=== PATIENT | male | born 1945 | race Caucasian/White ===

== ENCOUNTER 2020-10-14 21:11 | Emergency (ER) | payer MEDICARE, OTHER, SELFPAY ==
[2020-10-14 21:17] VITALS: BP 141/81; PULSE 71; RESP 18; TEMP 36.2; O2SAT 99
[2020-10-14 21:38] LABS: Add Manual Diff / Slide Review NO; Basophils Absolute Auto 100 /uL (0-100); Basophils Percent Auto 0.8 % (0-2); Eosinophils Absolute Auto 300 /uL (0-450); Eosinophils Percent Auto 2.2 % (2-4); Hematocrit 39.7 % (41-53); Hemoglobin 13.4 g/dL (13.5-17.5); Lymphocytes Absolute Auto 1700 /uL (1100-4500); Lymphocytes Percent Auto 10.4 % (25-40); Mean Corpuscular HGB Conc 33.8 % (30-36); Mean Corpuscular Hemoglobin 31.9 PG (26-34); Mean Corpuscular Volume 94.6 fL (80-100); Monocytes Absolute Auto 1400 /uL (0-900); Monocytes Percent Auto 8.5 % (3-14); Neutrophils Absolute Auto 12500 /uL (1500-7000); Neutrophils Percent Auto 78.1 % (50-75); Platelet Count 361 X10^3/uL (150-400); Red Cell Distribution Width 13.3 % (11.6-14.8)
[2020-10-14 21:47] LABS: Alanine Aminotransferase 30 IU/L (<50); Albumin 4.4 g/dL (3.5-5.0); Albumin Globulin Ratio 1.1 (1.0-2.8); Alkaline Phosphatase 50 U/L (38-126); Aspartate Aminotransferase 32 IU/L (17-59); Bilirubin Total 0.7 mg/dL (0.2-1.3); Blood Urea Nitrogen 72 mg/dL (9-20); Calcium 9.5 mg/dL (8.4-10.2); Carbon Dioxide 19 mmol/L (22-32); Chloride 107 mmol/L (98-107); Estimated Glomerular Filt Rate 20.6 mL/min (>60); Globulin 3.9 g/dL (1.7-4.1); Glucose 145 mg/dL (80-110); Lipase 232 U/L (23-300); Sodium 137 mmol/L (137-145); Total Protein 8.3 g/dL (6.3-8.2)
[2020-10-14 21:48] LABS: HEMOLYSIS 97 (0-50); Potassium 5.8 mmol/L (3.4-5.1)
[2020-10-14] MEDS: LIDOCAINE 2% (GLYDO) 6 ML GEL TOP (22:03)
[2020-10-14 22:42] LABS: Bilirubin Urine UA NEGATIVE (NEGATIVE); Color Urine UA YELLOW; Glucose Urine UA NEGATIVE (Negative); Ketones Urine UA NEGATIVE (NEGATIVE); Leukocyte Esterase Urine UA 2+ (NEGATIVE); Nitrite Urine UA NEGATIVE (Negative); Occult Blood Urine UA 2+ (Negative); Protein Urine UA 2+ (Negative); Specific Gravity Urine UA 1.015 (1.000-1.035); Urobilinogen Urine UA 0.2 E.U./dL (0.2); pH Urine UA 5.5 (4.5-8.0)
[2020-10-14 22:47] LABS: Appearance Urine UA CLOUDY
--- NOTE | 2020-10-14 22:47 | ED.GENADULT ---
HPI - General Adult General Chief complaint: Abdominal Pain Stated complaint: unable to urinate s/p infection Time Seen by Provider: 10/14/20 21:56 Source: patient Mode of arrival: Ambulatory History of Present Illness HPI narrative: Patient is a 75-year-old male here for evaluation of what he states that inability to urinate. He states that all his symptoms started approximately 3 weeks ago when he went to his primary doctor was diagnosed with a urinary tract infection. He stated that he completed a course of a medicine that he stated was Macrobid. He states that his symptoms seemed to improve but did not completely resolve and over the past couple days has had increasing difficulty with urination until the past 24 hours when he has been unable to urinate completely. He states he is going to the bathroom very often and does not feel like he is emptying his bladder. No fevers. States that he does have an enlarged prostate. Related Data Home Medications Medication Instructions Recorded Confirmed aspirin 81 mg chewable tablet 81 mg PO QDAY #0 08/28/16 atenolol 50 mg tablet 50 mg PO QDAY #0 08/28/16 losartan 100 1 tab PO QDAY #0 08/28/16 mg-hydrochlorothiazide 25 mg tablet metformin 500 mg tablet 500 mg PO BIDCC #0 08/28/16 (Glucophage) Previous Rx's Medication Instructions Recorded sulfamethoxazole 800 1 tab PO BID 3 Days #6 tab 10/14/20 mg-trimethoprim 160 mg tablet (Bactrim DS) Allergies Allergy/AdvReac Type Severity Reaction Status Date / Time No Known Drug Allergies Allergy Verified 10/14/20 21:55 Review of Systems Constitutional Constitutional: Denies fever(s) Cardiovascular Cardiovascular: Reports system reviewed and no additional complaints, except as documented Respiratory Respiratory: Reports system reviewed and no additional complaints, except as documented Gastrointestinal Gastrointestinal: Reports abdominal pain Genitourinary Genitourinary: Reports as per HPI Integumentary/Breasts Skin/Breast: Reports system reviewed and no additional complaints, except as documented Hematologic/Lymphatic On Anticoagulants: No Exam Initial Vital Signs Initial Vital Signs: Vital Signs Temperature 97.1 F L 10/14/20 21:17 Pulse Rate 71 10/14/20 21:17 Respiratory Rate 18 10/14/20 21:17 Blood Pressure 141/81 H 10/14/20 21:17 Pulse Oximetry 99 10/14/20 21:17 HENLA Head: normal to inspection GI Inspection: normal to inspection Palpation: soft External: normal external exam Skin General: no rashes or lesions noted Extrem General: normal to inspection Psych Appearance: grossly normal and well kempt Course Orders Ordered: ED Orders 10/14/20 21:30 Complete Blood Count AUTO DIFF Stat Comprehensive Metabolic Panel Stat Lipase Stat 10/14/20 22:29 Urinalysis and Microscopic Stat Urine Culture Stat Discontinued Medications Lidocaine HCl (Lidocaine 2% (Glydo) 6 Ml Gel) 6 ml TOP NOW ONE Stop: 10/14/20 21:51 Last Admin: 10/14/20 22:03 Dose: 6 ml Documented by: ATAYLOR Trimethoprim/Sulfamethoxazole (Trimeth/Sulfa 160/800 (Ds) Tablet) 1 tab PO NOW ONE Stop: 10/14/20 23:24 Last Admin: 10/14/20 23:42 Dose: 1 tab Documented by: STEFANIE Vital Signs Vital signs: Vital Signs - 8 hr 10/15/20 00:00 Pulse Rate 71 Respiratory Rate 16 Blood Pressure 140/80 Pulse Oximetry 99 Medical Decision Making Lab Data Lab results reviewed: Yes I reviewed the patient's lab results. Result diagrams: 10/14/20 21:30 10/14/20 21:30 Labs: Lab Results 10/14/20 10/14/20 10/14/20 Range/Units 21:30 21:30 22:29 WBC 16.0 H (4.5-11.0) X10^3/uL RBC 4.20 L (4.5-5.9) X10^6/uL Hgb 13.4 L (13.5-17.5) g/dL Hct 39.7 L (41-53) % MCV 94.6 (80-100) fL MCH 31.9 (26-34) PG MCHC 33.8 (30-36) % RDW 13.3 (11.6-14.8) % Plt Count 361 (150-400) X10^3/uL Neut % (Auto) 78.1 H (50-75) % Lymph % (Auto) 10.4 L (25-40) % [place] % (Auto) 8.5 (3-14) % Eos % (Auto) 2.2 (2-4) % Baso % (Auto) 0.8 (0-2) % Neut # (Auto) 25013 H (5468-7850) /uL Lymph # (Auto) 1700 (2188-2662) /uL [place] # (Auto) 1400 H (0-900) /uL Eos # (Auto) 300 (0-450) /uL Baso # (Auto) 100 (0-100) /uL Sodium 137 (137-145) mmol/L Potassium 5.8 H (3.4-5.1) mmol/L Chloride 107 (98-107) mmol/L Carbon Dioxide 19 L (22-32) mmol/L BUN 72 H (9-20) mg/dL Creatinine 3.00 H (0.66-1.25) mg/dL Estimated GFR 20.6 L (>60) mL/min BUN/Creatinine Ratio 24.0 H (6-22) Glucose 145 H (80-110) mg/dL Calcium 9.5 (8.4-10.2) mg/dL Total Bilirubin 0.7 (0.2-1.3) mg/dL AST 32 (17-59) IU/L ALT 30 (<50) IU/L Alkaline Phosphatase 50 (38-126) U/L Total Protein 8.3 H (6.3-8.2) g/dL Albumin 4.4 (3.5-5.0) g/dL Globulin 3.9 (1.7-4.1) g/dL Albumin/Globulin Ratio 1.1 (1.0-2.8) Lipase 232 (23-300) U/L Urine Color Yellow Urine Appearance Cloudy Urine pH 5.5 (4.5-8.0) Ur Specific [place] 1.015 (1.000-1.035) Urine Protein 2+ H (Negative) Urine Glucose (UA) Negative (Negative) g/dL Urine Ketones Negative (NEGATIVE) Urine Occult Blood 2+ H (Negative) Urine Nitrate Negative (Negative) Urine Bilirubin Negative (NEGATIVE) Urine Urobilinogen 0.2 (0.2) E.U./dL Ur Leukocyte Esterase 2+ H (NEGATIVE) Urine RBC 1-5/hpf (0-5/HPF) Urine WBC >100/hpf H (0-5/HPF) Urine Bacteria Moderate (10-30) H (None) Ur Culture Indicated? Specimen cultured MDM Narrative Medical decision making narrative: Bruno catheter was placed with return of just under 2 L of urine. The last portion of this urine was purulence. Urinalysis today is concerning for urinary tract infection. Does have a leukocytosis which I suspect is related to this. He does have a creatinine of 3 and a BUN of 72 and I suspect that this is related to his outlet obstruction. I have a very high suspicion that this will improve with continued drainage. Will start patient on antibiotics. Urine culture was obtained and is pending at the time of discharge in the patient understands this. A prescription for antibiotics sent to the pharmacy of his choice. Feel that a trial of outpatient antibiotics is warranted in this case. He was given information to follow-up with urology as well but he was also told to contact his primary doctor for follow-up. Patient was given return precautions and care instructions. He expressed understanding and agreement. Discharge Plan Departure Patient Disposition: Home Clinical Impression: Urinary tract infection, Acute urinary retention Instructions: How to Care for Your Bruno Catheter -- Male, DI for Urinary Tract Infection (UTI), DI for Urinary Retention in Men Activity Restrictions/Additional Instructions: A prescription for antibiotics to treat the infection that was found today was sent to the [facility] pharmacy on the [facility]. Pick it up tomorrow and start taking it as directed. A urine culture was also pending at the time of your discharge. We will contact you if we need to change any antibiotics. You were given the contact information for the Urology Clinic here at the hospital. You can contact them tomorrow for follow-up as well however you may need a referral from your primary doctor. Keep your primary doctor's appointment that you already have scheduled on Monday. Return to the emergency department for any new or worsening symptoms Prescriptions: New sulfamethoxazole-trimethoprim [Bactrim DS] 800-160 mg tablet 1 tab PO BID 3 Days Qty: 6 RF: 0 No Action losartan-hydrochlorothiazide 100 MG/25 MG tablet 1 tab PO QDAY Qty: 0 RF: 0 atenolol 50 MG tablet 50 mg PO QDAY Qty: 0 RF: 0 metformin [Glucophage] 500 MG tablet 500 mg PO BIDCC Qty: 0 RF: 0 aspirin 81 MG tablet,chewable 81 mg PO QDAY Qty: 0 RF: 0 Referrals: Vu Oneal MD [Primary Care Provider] - Alexis Negrete MD [Physician] -
[2020-10-14 22:57] LABS: Bacteria Urine Moderate (10-30); RBC Urine 1-5/HPF (0-5/HPF); WBC Urine >100/HPF (0-5/HPF)
[2020-10-14 22:58] LABS: Culture Indicated Urine Specimen Cultured
[2020-10-14] MEDS: TRIMETH/SULFA 160/800 (DS) TABLET 1 TAB PO (23:42)
[2020-10-15] VITALS: BP 140/80; PULSE 71; RESP 16; O2SAT 99
== END 2020-10-15 00:34 | disposition home or self-care (01) ==
PROVIDERS: Emergency Provider Emergency Medicine; PCP Family Medicine
DX: N39.0 Urinary tract infection, site not specified (principal); R33.8 Other retention of urine; R10.9 Unspecified abdominal pain
CPT/HCPCS: 36415; 51798; 80053; 81001; 83690; 85025; 87077; 87086; 87186; 99283; 99284

== ENCOUNTER 2020-10-20 09:21 | Emergency (ER) | payer MEDICARE, OTHER, SELFPAY ==
[2020-10-20 09:25] VITALS: BP 121/76; PULSE 76; RESP 14; TEMP 36.4; O2SAT 99
[2020-10-20] MEDS: LIDOCAINE 2% (GLYDO) 6 ML GEL TOP (09:44)
--- NOTE | 2020-10-20 09:54 | ED_ITS ---
HPI - Male Genitourinary General Chief complaint: Urogenital-Male Stated complaint: Not able to urinate Time Seen by Provider: 10/20/20 09:30 Source: patient Mode of arrival: Ambulatory Limitations: no limitations History of Present Illness HPI Narrative: This is a 75-year-old male who returns for urinary retention. Patient was seen here recently, he was noted to have a UTI, had Bruno catheter placed. This was removed by his primary care physician Dr. Oneal yesterday. He was told to return to the emergency department if he had not urinated after 4 hours. Patient states he was unable to urinate but was not any discomfort so he waited till this morning. Patient states that he had some mild discomfort tod ay. He had 1500 cc immediately out from his catheter. Patient was on antibiotics he states he was contacted about the urine culture. Patient denies any fevers or chills. No abdominal, back or flank pain. No nausea or vomiting. He does have chronic urinary issues and states he has always had to sit down to urinate in order to start a stream. He denies any other urinary symptoms such as dysuria, frequency or incontinence. Patient has been constipated and states he has not had a significant bowel movement for 2 weeks but is regularly passing flatus. He does have a history of hypertension as well as diabetes and takes an aspirin 81 mg daily. He is not on any medications for retention and is not taking Flomax daily. He did try to follow-up with urology but was not able to secure an appointment. He denies any prior surgeries or intra-abdominal surgeries. Related Data Home Medications Medication Instructions Recorded Confirmed aspirin 81 mg chewable tablet 81 mg PO QDAY #0 08/28/16 10/20/20 atenolol 50 mg tablet 50 mg PO QDAY #0 08/28/16 10/20/20 losartan 100 1 tab PO QDAY #0 08/28/16 10/20/20 mg-hydrochlorothiazide 25 mg tablet metformin 500 mg tablet 500 mg PO BIDCC #0 08/28/16 10/20/20 (Glucophage) Previous Rx's Medication Instructions Recorded tamsulosin 0.4 mg capsule (Flomax) 0.4 mg PO DAILY #14 cap 10/20/20 Allergies Allergy/AdvReac Type Severity Reaction Status Date / Time No Known Drug Allergies Allergy Verified 10/20/20 09:37 Review of Systems Review of Systems ROS Unobtainable: All systems reviewed & are unremarkable except as noted in HPI and below Patient History Medical History (Updated 10/20/20 @ 11:54 by Ila Trammell DO) Diabetes Hypertension Social History Smoking Status: Never smoker Smoking Status: Never smoker alcohol intake frequency: 0-2 drinks per day Substance Use Type: does not use Exam Narrative Exam Narrative: GENERAL: Alert and oriented x three, male in mild distress. HEENT: Head normocephalic, atraumatic, EOMI, pupils reactive, face symmetric, moist mucous membranes NECK: Supple, full range of motion CARDIOVASCULAR: Regular rate and rhythm without murmurs, rubs or gallops. RESPIRATORY: Breath sounds equal bilaterally, no wheezes rales or rhonchi. ABDOMEN: Soft, nontender. Normoactive bowel sounds all 4 quadrants. No guarding or rebound, rigidity, no mass. : No CVA tenderness, normal male genital. Patient is draining 1500 cc immedi ately of clear yellow urine. EXTREMITIES: Normal range of motion, no clubbing or edema. Neurovascularly intact NEUROLOGICAL: Cranial nerves II through XII grossly intact. Moving all extremities SKIN: Warm, dry, no petechiae, no rashes or lesions. Initial Vital Signs Initial Vital Signs: Vital Signs Temperature 97.5 F L 10/20/20 09:25 Pulse Rate 76 10/20/20 09:25 Respiratory Rate 14 10/20/20 09:25 Blood Pressure 121/76 10/20/20 09:25 Pulse Oximetry 99 10/20/20 09:25 Course Orders Ordered: Discontinued Medications Lidocaine HCl (Lidocaine 2% (Glydo) 6 Ml Gel) 6 ml TOP NOW ONE Stop: 10/20/20 09:41 Last Admin: 10/20/20 09:44 Dose: 6 ml Documented by: DARIO Vital Signs Vital signs: Vital Signs - 8 hr 10/20/20 09:25 Temperature 97.5 F L Pulse Rate 76 Respiratory Rate 14 Blood Pressure 121/76 Pulse Oximetry 99 MDM - Male Genitourinary Lab Data Result diagrams: 10/20/20 11:00 10/20/20 11:00 Labs: Lab Results 07/13/21 07/13/21 07/13/21 Range/Units 10:00 11:00 11:00 WBC 11.6 H (4.5-11.0) X10^3/uL RBC 4.00 L (4.5-5.9) X10^6/uL Hgb 12.7 L (13.5-17.5) g/dL Hct 37.2 L (41-53) % MCV 93.0 (80-100) fL MCH 31.7 (26-34) PG MCHC 34.0 (30-36) % RDW 13.2 (11.6-14.8) % Plt Count 290 (150-400) X10^3/uL Neut % (Auto) 79.5 H (50-75) % Lymph % (Auto) 7.1 L (25-40) % [place] % (Auto) 8.8 (3-14) % Eos % (Auto) 4.0 (2-4) % Baso % (Auto) 0.6 (0-2) % Neut # (Auto) 9200 H (3193-8835) /uL Lymph # (Auto) 800 L (9570-1181) /uL [place] # (Auto) 1000 H (0-900) /uL Eos # (Auto) 500 H (0-450) /uL Baso # (Auto) 100 (0-100) /uL Sodium 136 L (137-145) mmol/L Potassium 5.0 (3.4-5.1) mmol/L Chloride 106 (98-107) mmol/L Carbon Dioxide 21 L (22-32) mmol/L BUN 53 H (9-20) mg/dL Creatinine 2.66 H (0.66-1.25) mg/dL Estimated GFR 23.7 L (>60) mL/min BUN/Creatinine Ratio 19.9 (6-22) Glucose 139 H (80-110) mg/dL Calcium 9.3 (8.4-10.2) mg/dL Urine Color Yellow Urine Appearance Slightly cloudy Urine pH 5.5 (4.5-8.0) Ur Specific [place] 1.010 (1.000-1.035) Urine Protein 1+ H (Negative) Urine Glucose (UA) Negative (Negative) g/dL Urine Ketones Negative (NEGATIVE) Urine Occult Blood 3+ H (Negative) Urine Nitrate Negative (Negative) Urine Bilirubin Negative (NEGATIVE) Urine Urobilinogen 0.2 (0.2) E.U./dL Ur Leukocyte Esterase 1+ H (NEGATIVE) Urine RBC 10-30/hpf H (0-5/HPF) Urine WBC 10-30/hpf H (0-5/HPF) Urine Bacteria Few (2-10) H (None) Ur Culture Indicated? Specimen cultured Imaging Data US - abdomen: Radiologist's Impression: [address] [id number] ReportSigned Patient: Vikash Haji PMR#: [id number]: 7Acct:[id number]/Sex: 75 / MDate of Service: 10/20/20Loc: EDAccession Number: [id number] Procedure: US renal complete Ordering Provider: Ila Trammell D.O. PROCEDURE: US RENAL COMPLETE INDICATIONS: URINARY RETENTION ?ACUTE VS. CHRONIC. NO PAIN TECHNIQUE: Real-time scanning was performed of the kidneys and bladder, with image documentation. COMPARISON: None. FINDINGS: Kidneys: Kidneys are normal in size. Right kidney measures 12.4 cm long; left kidney measures 11.7 cm long. Right renal cortical thickness is 1.4 cm; left renal cortical thickness is 1.2 cm. Renal cortical echotexture is normal. No nephrolithiasis. No suspicious solid mass lesions. Moderate left kidney hydronephrosis is seen, with the left proximal ureter measuring 1.8 cm. Multiple bilateral simple renal cysts are seen. The largest on the right measures up to 1.4 cm and the largest on the left measures up to 2 cm. Bladder: A Bruno catheter is seen, which decompresses the bladder and limits its evaluation. Miscellaneous: No free pelvic fluid. IMPRESSION: Moderate left-sided hydronephrosis, with a prominent proximal left ureter.. Dictated by: Alli Frey M.D. on 10/20/2020 at 10:08 Approved by: Alli Frey M.D. on 10/20/2020 at 10:[address] [facility] Narrative Medical decision making narrative: This is a 75-year-old male who returns without pain but inability urinate since yesterday after his Bruno catheter was a removed. Patient was seen here approximately a week ago for UTI with urinary retention. Patient's renal function is actually improved here. I suspect he did not have any pain this is chronic urinary retention he has some hydro on the left with normal sized kidneys. No nephrolithiasis or suspicious solid mass lesions. He has multiple bilateral simple cysts. Patient's creatinine was 3 on his last visits 2.66 today he is unaware of any prior renal issues. Patient is on several medications and was encouraged to stop potential offending agents but I suspect this is more secondary to his urinary retention. Patient was started on Flomax. Given referral to Urology but also discussed he needs follow-up with nephrology as well. He has an appointment with his primary care physician shortly and was asked to talk with them. Patient does not have any electrolyte abnormalities necessitating emergent Nephrology referral. All questions were answered patient was encouraged to return and is aware of the importance of follow-up. To finish his antibiotics and his urine was re-cultured today and will be contacted if he needs changes or to continue. Discharge Plan Departure Patient Disposition: Home Clinical Impression: Acute urinary retention, Elevated serum creatinine Instructions: DI for Urinary Retention in Men Activity Restrictions/Additional Instructions: Follow-up with urology for recheck. If you are not able to get a short-term follow-up your primary care physician can try to remove here catheter in the next week but they do need to make sure you urinate afterwards. Your ultrasound today does show some hydronephrosis on the left as well as renal cysts. I suspect you have had some chronic urinary retention, this needs to be addressed by urology. You likely need to follow-up with a equipment application specialist as well in the future. Your primary care physician can help you with this step. Your creatinine on your last visit was 3, today it is 2.66. You may need to stop your blood pressure medication including your losartan and possibly your metformin as these can affect your renal function as well. It is recommended that you start Flomax once daily to help the muscles in your bladder function more properly. Prescription was [facility] to [facility]. It is recommended that you take a stool softener and increase your hydration to make sure your stooling regularly this can worsen your urinary retention. Colace 1-2 times daily may be helpful. This medicine will not work unless or drinking plenty of fluids. Your urine was sent for culture again today. Finish her current antibiotics and will contact you if we need to change or if new antibiotics. Please return for fevers, if you are unable to urinate or not making any urine output, new abdominal, back or flank pain, persistent vomiting, if you are still not having any bowel movements after starting a stool softener or if you are not passing gas or other new or concerning symptoms. Prescriptions: New tamsulosin [Flomax] 0.4 mg capsule 0.4 mg PO DAILY Qty: 14 RF: 0 No Action losartan-hydrochlorothiazide 100 MG/25 MG tablet 1 tab PO QDAY Qty: 0 RF: 0 atenolol 50 MG tablet 50 mg PO QDAY Qty: 0 RF: 0 metformin [Glucophage] 500 MG tablet 500 mg PO BIDCC Qty: 0 RF: 0 aspirin 81 MG tablet,chewable 81 mg PO QDAY Qty: 0 RF: 0 Referrals: Vu Oneal MD [Primary Care Provider] - Alexis Negrete MD [Physician] -
[2020-10-20 10:05] LABS: Bilirubin Urine UA NEGATIVE (NEGATIVE); Color Urine UA YELLOW; Glucose Urine UA NEGATIVE (Negative); Ketones Urine UA NEGATIVE (NEGATIVE); Leukocyte Esterase Urine UA 1+ (NEGATIVE); Nitrite Urine UA NEGATIVE (Negative); Occult Blood Urine UA 3+ (Negative); Protein Urine UA 1+ (Negative); Urobilinogen Urine UA 0.2 E.U./dL (0.2); pH Urine UA 5.5 (4.5-8.0)
--- NOTE | 2020-10-20 10:06 | DI.US.S_ITS ---
PROCEDURE: US RENAL COMPLETE INDICATIONS: URINARY RETENTION ?ACUTE VS. CHRONIC. NO PAIN TECHNIQUE: Real-time scanning was performed of the kidneys and bladder, with image documentation. COMPARISON: None. FINDINGS: Kidneys: Kidneys are normal in size. Right kidney measures 12.4 cm long; left kidney measures 11.7 cm long. Right renal cortical thickness is 1.4 cm; left renal cortical thickness is 1.2 cm. Renal cortical echotexture is normal. No nephrolithiasis. No suspicious solid mass lesions. Moderate left kidney hydronephrosis is seen, with the left proximal ureter measuring 1.8 cm. Multiple bilateral simple renal cysts are seen. The largest on the right measures up to 1.4 cm and the largest on the left measures up to 2 cm. Bladder: A Bruno catheter is seen, which decompresses the bladder and limits its evaluation. Miscellaneous: No free pelvic fluid. IMPRESSION: Moderate left-sided hydronephrosis, with a prominent proximal left ureter.. Dictated by: Alli Frey M.D. on 10/20/2020 at 10:08 Approved by: Alli Frey M.D. on 10/20/2020 at 10:10
[2020-10-20 10:07] LABS: Appearance Urine UA Slightly Cloudy
[2020-10-20 10:13] LABS: RBC Urine 10-30/HPF (0-5/HPF)
[2020-10-20 10:14] LABS: Bacteria Urine Few (2-10); Culture Indicated Urine Specimen Cultured; WBC Urine 10-30/HPF (0-5/HPF)
--- NOTE | 2020-10-20 10:26 | PC.NURSE ---
Pt states that his catheter placed visit 10/15 was removed at PCP office yesterday and he has not voided since. Has no pain. Catheter placed in ED w/o difficulty w/ > 1500 cc return. Discussed how 1500 cc would normally give people significant pain, pt states he has had difficulty voiding for quite some time. Pt denies fever, nausea/vomiting.
[2020-10-20 11:05] LABS: Add Manual Diff / Slide Review NO; Basophils Absolute Auto 100 /uL (0-100); Basophils Percent Auto 0.6 % (0-2); Eosinophils Absolute Auto 500 /uL (0-450); Hematocrit 37.2 % (41-53); Hemoglobin 12.7 g/dL (13.5-17.5); Lymphocytes Absolute Auto 800 /uL (1100-4500); Lymphocytes Percent Auto 7.1 % (25-40); Mean Corpuscular Hemoglobin 31.7 PG (26-34); Monocytes Absolute Auto 1000 /uL (0-900); Monocytes Percent Auto 8.8 % (3-14); Neutrophils Absolute Auto 9200 /uL (1500-7000); Neutrophils Percent Auto 79.5 % (50-75); Platelet Count 290 X10^3/uL (150-400); Red Cell Distribution Width 13.2 % (11.6-14.8); White Blood Cell Count 11.6 X10^3/uL (4.5-11.0)
[2020-10-20 11:15] LABS: BUN Creatinine Ratio 19.9 (6-22); Blood Urea Nitrogen 53 mg/dL (9-20); Calcium 9.3 mg/dL (8.4-10.2); Carbon Dioxide 21 mmol/L (22-32); Chloride 106 mmol/L (98-107); Estimated Glomerular Filt Rate 23.7 mL/min (>60); Glucose 139 mg/dL (80-110); HEMOLYSIS < 15 (0-50); Sodium 136 mmol/L (137-145)
[2020-10-20 11:58] VITALS: BP 125/73; PULSE 70; RESP 14; O2SAT 99
== END 2020-10-20 12:15 | disposition home or self-care (01) ==
PROVIDERS: Emergency Provider Emergency Medicine; PCP Family Medicine
DX: R33.8 Other retention of urine (principal); R79.89 Other specified abnormal findings of blood chemistry
CPT/HCPCS: 36415; 51702; 76770; 80048; 81001; 85025; 87086; 99284

== ENCOUNTER → 2020-11-11 13:56 | Outpatient (CLI) | payer MEDICARE, OTHER, SELFPAY ==
[2020-11-11 14:52] LABS: BUN Creatinine Ratio 15.2 (6-22); Blood Urea Nitrogen 25 mg/dL (9-20); Calcium 9.6 mg/dL (8.4-10.2); Carbon Dioxide 24 mmol/L (22-32); Chloride 105 mmol/L (98-107); Estimated Glomerular Filt Rate 41.4 mL/min (>60); Glucose 113 mg/dL (80-110); HEMOLYSIS < 15 (0-50); Potassium 4.9 mmol/L (3.4-5.1); Sodium 136 mmol/L (137-145)
== END ==
PROVIDERS: PCP Family Medicine; Referring Provider Urology; Visit Provider Urology
DX: R79.89 Other specified abnormal findings of blood chemistry (principal)
CPT/HCPCS: 36415; 80048

== ENCOUNTER → 2020-11-20 12:52 | Outpatient (CLI) | payer MEDICARE, OTHER, SELFPAY | PROVIDERS: PCP Family Medicine; Visit Provider Urology | DX: N13.30 Unspecified hydronephrosis (principal); N13.9 Obstructive and reflux uropathy, unspecified; N32.0 Bladder-neck obstruction; R33.8 Other retention of urine; R82.81 Pyuria; T83.511A Infection and inflammatory reaction due to indwelling urethral catheter, initial encounter | CPT/HCPCS: 51702; 81002; 87077; 87086; 87186; 99213 ==

== ENCOUNTER → 2020-12-30 09:34 | Outpatient (CLI) | payer MEDICARE, OTHER, SELFPAY ==
[2020-12-30 12:25] LABS: Appearance Urine UA CLOUDY; Bilirubin Urine UA NEGATIVE (NEGATIVE); Color Urine UA YELLOW; Glucose Urine UA NEGATIVE (Negative); Ketones Urine UA NEGATIVE (NEGATIVE); Leukocyte Esterase Urine UA 3+ (NEGATIVE); Nitrite Urine UA NEGATIVE (Negative); Occult Blood Urine UA 3+ (Negative); Protein Urine UA 2+ (Negative); Urobilinogen Urine UA 0.2 E.U./dL (0.2)
[2020-12-30 12:38] LABS: Bacteria Urine Many (>30); Culture Indicated Urine Specimen Cultured; RBC Urine 5-10/HPF (0-5/HPF); WBC Urine 10-30/HPF (0-5/HPF)
== END ==
PROVIDERS: PCP Family Medicine; Visit Provider Urology
DX: N39.0 Urinary tract infection, site not specified (principal); R33.8 Other retention of urine
CPT/HCPCS: 81001; 87077; 87086; 87186

== ENCOUNTER → 2021-01-26 12:13 | Outpatient (CLI) | payer MEDICARE, OTHER, SELFPAY | PROVIDERS: PCP Family Medicine; Referring Provider Urology; Visit Provider Urology | DX: N39.0 Urinary tract infection, site not specified (principal) | CPT/HCPCS: 87077; 87086; 87186 ==

== ENCOUNTER → 2021-01-26 12:31 | Outpatient (CLI) | payer MEDICARE, OTHER, SELFPAY ==
--- NOTE | 2021-01-26 12:33 | DI.MRI.S_ITS ---
PROCEDURE: MR PELIS WO/W CON INDICATIONS: Prostate volume study TECHNIQUE: Coronal HASTE, axial T1 FSE with fat saturation, 3-plane nonbreath-hold T2 FSE. After the administration of contrast, dynamic axial, delayed axial and coronal VIBE or 2-D FLASH with fat saturation through the pelvis. Optional diffusion weighted imaging and ADC may be performed. COMPARISON: None. FINDINGS: Image quality: Diffusion weighted and dynamic contrast enhanced images are diagnostic. Prostate: Overall gland size is 6.4 x 5.4 x 8.1 cm; ellipsoid gland volume is 145.6 mL. The median lobe portion measures roughly 3.6 x 3.3 x 3.1 cc for a volume of approximately 19.2 cc. There is transitional zone nodular hypertrophy and diffuse signal heterogeneity. Compression of the peripheral zone is seen. Bruno catheter tubing delineates the urethra which remains relatively midline. Lesion size(s): Lesion 1: 0.9 cm in AP diameter measured in the axial plane. Lesion location(s) (sector): Lesion 1: Left posterior transitional zone in the mid gland to apex. Lesion description: Lesion 1: Indistinct, irregular, poorly marginated area of T2 hypointensity on the minimally more hypointense compared to remainder of the gland. T2 weighted imaging (T2WI) morphology score: Lesion 1: One Diffusion weighted imaging (DWI) morphology score: Lesion 1: Three Dynamic contrast enhancement (DCE): Lesion 1: Absent Lesion PI-RADS score: Lesion 1: PI-RADS two Genitourinary system: The urinary bladder wall is markedly thickened with coarse internal trabeculation. There is a thin-walled, smoothly marginated fluid collection arising posterior and superior to the right corner of the urinary bladder measuring about 4.6 cm in greatest diameter suggestive of a decompressed seminal vesicles demonstrate normal morphology. Distal ureters are nondilated. bladder diverticulum. Bowel and peritoneum: No pathologic free pelvic fluid. Inferior colon and small bowel loops are normal in caliber. Sigmoid diverticulosis. Nodes and vessels: No pelvic or inguinal adenopathy by size criteria. Iliac vessels are normal in caliber. Soft tissues: Small fat containing right inguinal hernia. Bones: Marrow demonstrates normal overall signal, without lesions to suggest metastases. IMPRESSION: 1. Prostatomegaly. 2. Incidental note made of subcentimeter PI-RADS two prostate lesion. Clinical significance uncertain. 3. Coarse urinary bladder trabeculation and bladder wall thickening consistent with chronic outlet obstruction. 4. Right posterior superior bladder diverticulum. Dictated by: Carol Saunders M.D. on 01/26/2021 at 17:32 Approved by: Carol Saunders M.D. on 01/26/2021 at 17:54
== END ==
PROVIDERS: PCP Family Medicine; Referring Provider Urology; Visit Provider Urology
DX: T83.511A Infection and inflammatory reaction due to indwelling urethral catheter, initial encounter (principal); N39.0 Urinary tract infection, site not specified; R33.8 Other retention of urine; N13.30 Unspecified hydronephrosis; N32.0 Bladder-neck obstruction; N40.1 Benign prostatic hyperplasia with lower urinary tract symptoms; N13.9 Obstructive and reflux uropathy, unspecified; N32.3 Diverticulum of bladder
CPT/HCPCS: 51702; 72197; 87077; 87086; 87186

== ENCOUNTER → 2021-03-01 13:48 | Outpatient (CLI) | payer MEDICARE, OTHER, SELFPAY | PROVIDERS: PCP Family Medicine; Referring Provider Specialist; Visit Provider Specialist | DX: N13.30 Unspecified hydronephrosis (principal); N13.9 Obstructive and reflux uropathy, unspecified; N32.0 Bladder-neck obstruction; N39.0 Urinary tract infection, site not specified; N40.1 Benign prostatic hyperplasia with lower urinary tract symptoms; R30.0 Dysuria; R33.8 Other retention of urine | CPT/HCPCS: 51702; 87077; 87086; 87147 ==

== ENCOUNTER → 2021-03-05 09:23 | Outpatient (CLI) | payer MEDICARE, OTHER, SELFPAY ==
[2021-03-05 12:03] LABS: COVID19 -Nasal RAPID Negative (Negative)
== END ==
PROVIDERS: PCP Family Medicine; Visit Provider Nurse Practitioner Family
DX: Z20.822 Contact with and (suspected) exposure to COVID-19 (principal)
CPT/HCPCS: 87635

== ENCOUNTER 2021-03-08 06:39 | Inpatient (IN) | payer MEDICARE, OTHER, SELFPAY ==
[2021-02-26 07:13] VITALS: BMI 30.9
[2021-03-08] VITALS (15 sets, daily range): BP systolic 74–138; BP diastolic 41–84; PULSE 54–67; RESP 12–17; TEMP 36.1–37.1; O2SAT 97–100; BMI 30.9
--- NOTE | 2021-03-08 | PATH_ITS ---
[facility] Accession Number: [id number] . 01 Material submitted: . prostate - PROSTATE . 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 Focal acute and chronic prostatitis. Resection margins (apical and bladder base) negative for atypia or malignancy. MRV 03/10/2021 1411 Local . 02 Electronically signed: . Kayla Barcenas MD, Pathologist NPI- [id number] . 01 Gross description: . The specimen is received in formalin, labeled prostate and consists of a 128-gram prostate measuring 9.5 cm from apex to base by 5.5 cm laterally by 4.0 cm from anterior to posterior. The external surface is phipps-pink with fibrinous adhesions and focal cautery artifact. The specimen is inked as follows: Right anterior blue, right posterior green, left anterior yellow, and left posterior black. The specimen is serially sectioned from apex to base into 20 slices to reveal phipps-pink focally cystic and nodular cut surfaces. Assembly Line Machine Operator sections are submitted. . A1: Right apical margin, perpendicularly sectioned. A2-A3: Left apical margin, perpendicularly sectioned. A4-A7: Slice 6, quadrisected. A8: Slice 8, right posterior. A9: Left anterior. A10: Left posterior. A11: Right anterior. A12: Left posterior. A13-A14: Right base margin, perpendicularly sectioned. A15-A16: Left base margin, perpendicularly sectioned. (EA:[id number]) /MRV 03/09/2021 1300 Local . 02 Pathologist provided ICD-10: N40.1 . 02 CPT . 403608 Performed at: 01 [facility] [address] [address], [place], [place] [id number] MD David Stanton MD Phone: [phone] Performed at: [address] [id number] MD Darlin Xiong MD Phone: [phone]
--- NOTE | 2021-03-08 07:29 | PM.PREOP ---
Pre-operative Note Interval Note History & Physical reviewed/Exam performed by Physician: Yes Changes to H&P: No
[2021-03-08] MEDS: ACETAMINOPHEN IV 1,000 MG/100 ML VIAL 400 MG IV (07:36)
[2021-03-08] MEDS: LACTATED RINGERS 1,000 ML 42 ML IV ×3 (07:39→10:55)
[2021-03-08 07:48] LABS: Blood Urea Nitrogen 18 mg/dL (9-20); Calcium 9.2 mg/dL (8.4-10.2); Carbon Dioxide 25 mmol/L (22-32); Chloride 98 mmol/L (98-107); Estimated Glomerular Filt Rate 50.4 mL/min (>60); Glucose 124 mg/dL (80-110); HEMOLYSIS < 15 (0-50); Potassium 3.8 mmol/L (3.4-5.1); Sodium 133 mmol/L (137-145)
[2021-03-08] MEDS: AMPICILLIN/SULBACTAM 3 GM 3 GM in SODIUM CHLORIDE 0.9% 100 ML IV (07:51)
[2021-03-08 08:19] LABS: Prostate Specific Antigen 7.08 ng/mL (0.10-4.00)
[2021-03-08] MEDS: GENTAMICIN 160 MG in SODIUM CHLORIDE 0.9% 100 ML 104 ML IV (08:25)
--- NOTE | 2021-03-08 09:03 | SUR.OPER ---
Supine on padded OR bed, head on pillow, arms secured on padded arm boards at <90 degrees abduction, legs uncrossed, safety belt at lower legs.
[2021-03-08] MEDS: BUPIVACAINE LIPOSOME 266 MG/20 ML VIAL INJ (09:22)
[2021-03-08] MEDS: SODIUM CHLORIDE 0.9% FLUSH 20 ML IV (09:24)
[2021-03-08] MEDS: BUPIVACAINE 0.5% (PF) 30 ML, EPINEPHrine 0.15 MG INJ (09:26)
--- NOTE | 2021-03-08 10:07 | SUR.OPER ---
Patient to OR with indwelling catheter in place. Removed per order of Dr. Negrete, 200ml urine in bag.
--- NOTE | 2021-03-08 11:47 | PM.OP.1 ---
Operative Date/Time/Diagnoses Date of procedure: 03/08/21 Time of procedure: 11:47 Pre-op diagnosis: Urinary retention Post-op diagnosis: same Procedure & Clinicians Procedure: 1. Simple open prostatectomy Same procedure as scheduled: Yes Indications: 1. Urinary retention Surgeon: Alexis Negrete Purchase Price Analyst: Vikash Phelps Click Yes if Unassisted: No Anesthesia Type: General, Spinal and Local (1.33% Exparel) Operative Notes Findings: 1. Thickened bladder wall with associated cellules consistent with chronic bladder outlet obstruction. 2. Radiographically documented right posterior bladder wall diverticulum was deemed small and of minimal clinical significance and was not addressed. 3. Markedly enlarged prostate with associated large intravesical median lobe. Closure Type: primary Specimen(s): other (Prostate adenoma) Applied: catheter ([address] hematuria catheter) and drain(s) (15. Hong Konger fenestrated Talat drain) Estimated Blood Loss (mL): 600 Blood products transfused: none Tourniquet time (min): 0 Procedure in detail: The patient was positioned supine following successful placement of Duramorph spinal anesthesia and was provided general anesthesia. The lower abdomen, genitalia, and groin were then prepped and draped in sterile fashion. A midline infraumbilical incision was then made through the skin, subcutaneous fat, Jazmin's fascia, and the rectus fascia using sharp and blunt technique. The anterior and lateral pelvic sidewalls were then carefully exposed using blunt technique. A 22 [place]er Bruno catheter was inserted in the bladder and bladder was filled with 400 cc of sterile saline. The anterior midline bladder wall was then anesthetized with 0.5% Marcaine with epinephrine. A midline cystotomy was then conducted and the sterile saline irrigant was suctioned from the bladder proper. Again, 0.5% Marcaine with epinephrine was used to infiltrate the mucosa and bladder muscle surrounding the bladder neck. The cautery pen was then used to incise circumferentially around the prostate/bladder neck interface. Next using blunt sharp technique the prostate adenoma was carefully removed from within the capsule of the prostate. And O Vicryl suture was used to provide retraction and exposure of the prostate adenoma during the dissection. Eventually the prostatic apex was reached and cleared of surrounding connective tissue. Urethra was transected at this location and the prostate adenoma was then handed off the field and submitted for routine gross and microscopic examination. Next, interrupted, [id number] 2-0 Monocryl were then placed at the 12, 5, and 7:00 a.m. positions at the bladder neck for hemostasis. The prostate fossa was packed with lap sponges for 5-10 minutes for hemostasis. Following removal careful inspection an additional interrupted, [id number] 2-0 Monocryl required for hemostasis within the fossa. Following this hemostasis was excellent. A 24 Hong Konger, 3 way hematuria catheter was then inserted lower urinary tract in position with the tip in the bladder. The anterior cystotomy was then closed in 2 layers consisting of an inter mucosa muscular layer, and an outer serosa muscular layers using a running Lembert technique. The Bruno balloon was then inflated to 45 cc and the catheter was irrigated with return of very light, pink-tinged urine and no clots. The outflow was placed to gravity drainage and the inflow was connected to normal saline CBI. Next, a 15 Hong Konger fenestrated Talat drain was positioned in the space of Retzius and brought through a separate stab incision to the right of the midline incision. It was secured to the skin using a 2-0 silk suture in usual fashion. The midline rectus fascia was then closed using 0 PDS beginning at the superior, and the inferior apex and then timed 1 another together at approximately the midline. The safety is Jazmin's fascia was reapproximated with running 3-0 Monocryl. Finally the skin was reapproximated using a subcuticular technique with 4-0 Monocryl. Telfa gauze was then selected and tailored appropriately for the coverage of the midline incision and the drain site. Over this transparent, Bioclusive Op site was then applied. The patient was then awakened, transferred to [facility], transferred to recovery in stable condition. Complications: none Post-operative Condition: stable Disposition: PACU Plan for aftercare: Admit to acute care.
--- NOTE | 2021-03-08 12:07 | SUR.PHASEI ---
Pt from OR at [address] Dean and Chastity Pinto after duramorph spinal and general anesthesia. Pt breathing unassisted. Opens eyes, denies pain. 3 way eugene intact draining pink urine with continuous bladder irrigation. Dressing / Talat drain intact. Abdomen soft. 1137 SBAR handoff to Nikos PINTO.
[2021-03-08] MEDS: LACTATED RINGERS 1,000 ML 125 ML IV ×2 (13:05→21:38)
[2021-03-08] MEDS: METFORMIN HCL 500 MG TABLET PO (21:50)
[2021-03-09] VITALS (7 sets, daily range): BP systolic 96–139; BP diastolic 50–81; PULSE 58–66; RESP 14–18; TEMP 36.6–37.3; O2SAT 95–98
[2021-03-09] MEDS: LACTATED RINGERS 1,000 ML 125 ML IV ×2 (05:48→17:06)
--- NOTE | 2021-03-09 07:58 | PM.PN.1 ---
Subjective Subjective Date Patient Seen: 03/09/21 Time Patient Seen: 07:59 Interval history: The patient is postoperative day 1 status post simple open prostatectomy for urinary retention and failure of voiding trials on medical therapy. He denies significant postop pain or discomfort. Reports pain level at 1 to 2/10. He is tolerating general p.o. diet. He is passing flatness and had a liquid stool this morning. Denied lightheadedness and no evidence of orthostatic changes upon sitting up or ambulating. Exam Vital Signs (past 8 hours): - 03/09/21 01:08 03/09/21 04:43 Temperature 98.6 F 98.6 F Pulse Rate 58 L 63 Respiratory Rate 16 16 Blood Pressure 96/50 L 122/62 Pulse Oximetry 96 97 Oxygen Delivery Method Room Air Oxygen Flow Rate 0 Narrative Exam Narrative: He is sitting upright in bed and in no distress. Chest-equal and unlabored expansion bilaterally. Heart-normal sinus rhythm Abdomen-round and protuberant. Bowel tones are active. Incisional dressings are intact with some blood staining of the abdominal Telfa. DARCY drain has scant serosanguineous output. Total output over last shift was 50 cc. Extremities-warm, no evidence of edema. Objective Labs Result Diagrams: 03/08/21 07:15 03/08/21 07:15 Labs: Laboratory Results - last 24 hr 03/08/21 03/08/21 07:15 07:15 Prostate Specific Ag 7.08 H Blood Type O Positive Antibody Screen Negative [facility] Medical History (Updated 02/26/21 @ 07:17 by Mei Wilson RN) Acute urinary retention CKD (chronic kidney disease) Diabetes Enlarged prostate with urinary retention Hard of hearing History of UTI 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 Hypertension Obstructive uropathy Pyuria Urinary tract infection Surgical History (Updated 02/26/21 @ 09:08 by Mei Wilson RN) History of vasectomy Hx of blepharoplasty (2019) Social History household members: none Smoking Status: Former smoker alcohol intake: current Assessment & Plan Assessment and plan (1) Enlarged prostate with urinary retention: Status: Acute Plan 1. Stable postoperative day 1. Status post simple open prostatectomy for urinary retention. 2. Increase diet and activity. 3. Monitor character and color of Bruno outflow. 4. Pathology pending Time Spent With Patient Critical Care time: I spent a total of [] minutes of critical care time on this patient's care today; this time is exclusive of procedural time.
--- NOTE | 2021-03-09 08:05 | PC.NURSE ---
pt ambulated to the bathroom tonight, he had a loose stool and also passed gas. Pt continue with CBI, urine is light pink, no blood clots notted. Plan is to continue to monitor.
[2021-03-09] MEDS: METFORMIN HCL 500 MG TABLET PO ×2 (09:31→22:45)
[2021-03-09] MEDS: ASPIRIN EC 81 MG TABLET PO (09:31)
[2021-03-09] MEDS: atenoloL 50 MG TABLET PO (09:31)
[2021-03-09] MEDS: ENOXAPARIN 40 MG/0.4 ML SYRINGE SUBCUT (09:31)
[2021-03-09] MEDS: LOSARTAN 50 MG TABLET 100 MG PO (09:32)
[2021-03-09] MEDS: hydroCHLOROthiazide 25 MG TABLET PO (09:32)
--- NOTE | 2021-03-09 11:17 | CM.DANOTE ---
DCP: Case received, EMR reviewed and met with patient. Introduced self and role. Was able to obtain information regarding patient's baseline activity status prior to hospitalization, as well as his current living situation. DCP assessment completed with information currently available. Patient is a 76 year old male who admitted yesterday morning to the care of the surgical team. PCP: Dr. Oneal. Payer: confirmed: Medicare/[employer]. Patient came to the hospital via private vehicle for a surgical procedure. Patient had an open prostatectomy. Patient has history of urinary retention. Met with patient in his room. He is pleasant, and was sitting up in his chair. He is hard of hearing, had hearing aide. Confirmed with patient that he resides in [place] alone, is retired. He is independent at his baseline. He stated that he has a friend that lives nearby who is a nurse, and can help him if needed. P: DCP to continue to follow. Patient should be able to go home when he is medically stable. Tricia Cameron RN/Oral Pathologist Discharge Planning/Care Management CM Discharge Assessment Start: 03/09/21 11:16 Freq: Status: Active Protocol: Document 03/09/21 11:16 (Rec: 03/09/21 11:17 [id number]) Discharge Planning Assessment Assigned Urologic Surgeon Tricia Cameron RN/Oral Pathologist Advance Directives? No History Provided By Patient,Medical Record Prior Living Arrangements House Household Members none Type of transporation used prior to Drives own vehicle admit Independent with ADL's Yes Is patient alert and oriented? Yes Caregiver for Another No Barriers to Discharge No Discharge Plan Home Transportation Arrangement Friend Referrals Initiated None needed Whiteboard Updated in Patient Room with Yes name and ext. # of Urologic Surgeon Review Status In Process Next Review Type Continued Stay Review Pre-Anesthesia Assessment Start: 02/26/21 07:13 Freq: Status: Active Protocol: Document 02/26/21 07:13 CAB (Rec: 02/26/21 07:28 CAB [id number]) Pre-Anesthesia Assessment Preferred Name Vikash Patient Information Reviewed Via Phone Assessment Assessment Completed With Patient Comment COVID screen @ 03/05/21 Primary Care Provider Vu Oneal Seen Specialist in Last 12 Months Yes Specialist Seen Emergency,Urologist Primary Language Syriac Bolt Header Required No Height 6 ft 1 in Weight 235 lb Body Mass Index (BMI) 30.9 Hearing Ability Hard of Hearing,Use of Hearing Aid Visual Assist Glasses Dentition Type Teeth, Natural Present Barriers to Learning Auditory Hx Anesthesia Reactions No Hx Family Anesthesia Reaction No Hx Malignant Hyperthermia No Hx Blood Transfusions No Anesthesia Review Requested No alcohol intake current alcohol intake frequency a few times a week Smoking Status Former smoker how long ago did patient quit smoking Smoked occasionally in the [place] Substance Use Type does not use Pain Present Denied Pain History of Falling (Recent or History of No ) Patient is completely paralyzed or No completely immobile Mental Status Oriented to own ability Is patient on oxygen? No Does patient have PERES/SOB No Hx Sleep Apnea No Currently Taking a Beta Varun Yes: Atenolol Can You Climb a Flight of Stairs Without Yes SOB Hx Chest Pain No Hx SOB No Hx Syncope or Dizziness No Anti-Coagulant Therapy No Has a Utility Engineer No Cardiac Testing No Hx Pacemaker/ICD No Pacemaker Rep Required? No Cardiac Clearance Received Not Applicable Diet Type At Home Regular dysphagia No Bladder Pattern Retention Urinary Catheter Present Yes: Bruno placed in ED 10/14 Hx Urinary Self Catheterization No Diabetes Yes Hx Drug Resistant Organism No Presence of External or Internal Medical Yes: Bruno catheter Devices Have you had any close contact with No someone diagnosed with COVID-19? Received a COVID vaccine? Yes Received all doses? Yes Marital Status Single Lives With none Prior Living Arrangements House Number of Floors (Floors) Two Floors Support System Friend(s) Does the Patient Have Assistance After Yes Surgery Patient Discharge Plan Description Return Home,Other Comment Pt advised 2-3 day length of stay per surgeon. Pt plans to DC to friend's Feels Safe in Current Environment Yes Been Physically Hurt or Threatened By a No Person in Current Environment Do you have thoughts of harming yourself None or others? Are you currently considering suicide? No Do you have a plan to hurt yourself or No Plan others? Do You Have Any Spiritual Beliefs That No May Affect Your HC Choices? Do You Have Any Cultural Practices That No May Affect Your HC Choices? Comment [place] Who Can We Speak to About Patient's Care Family, friends Identifying Code for Release of Patient Declines to issue Information Health Care Proxy/Next of Kin Vikash (son) Health Care Proxy or cell: Emergency Contact Name Vikash (son) Imelda (friend) Emergency Contact Phone Number Vikash: [phone] or cell: [phone] Imelda: [phone] Advance Directives? No Power of Bus System Operator No PAC Instructions Medications to take/avoid,No ETOH/petroleum product on skin DOS,NPO,Post-op transportation,Sensory aids, Sturdy shoes/comfortable clothes,Do not bring valuables and remove jewelry
[2021-03-09] MEDS: IBUPROFEN 200 MG TABLET PO (17:06)
[2021-03-09] MEDS: ACETAMINOPHEN 325 MG TABLET 650 MG PO ×2 (17:41→22:45)
[2021-03-09] MEDS: MELATONIN 3 MG TABLET 9 MG PO (22:45)
[2021-03-10] MEDS: LACTATED RINGERS 1,000 ML 125 ML IV (02:01)
[2021-03-10 05:00] VITALS: BP 124/68; PULSE 67; RESP 18; TEMP 36.7; O2SAT 96
[2021-03-10 08:26] VITALS: BP 119/71; PULSE 65; RESP 16; TEMP 36.6; O2SAT 96
[2021-03-10 08:49] VITALS: BP 119/71
[2021-03-10] MEDS: hydroCHLOROthiazide 25 MG TABLET PO (08:49)
[2021-03-10] MEDS: LOSARTAN 50 MG TABLET 100 MG PO (08:49)
[2021-03-10] MEDS: ACETAMINOPHEN 325 MG TABLET 650 MG PO (08:49)
[2021-03-10] MEDS: METFORMIN HCL 500 MG TABLET PO (08:49)
[2021-03-10] MEDS: ASPIRIN EC 81 MG TABLET PO (08:50)
[2021-03-10] MEDS: ENOXAPARIN 40 MG/0.4 ML SYRINGE SUBCUT (08:50)
[2021-03-10] MEDS: atenoloL 50 MG TABLET PO (08:50)
[2021-03-10 12:09] VITALS: BP 112/62; PULSE 56; RESP 16; TEMP 36.6; O2SAT 97
--- NOTE | 2021-03-10 12:47 | PM.DS.1 ---
History of Present Illness History of Present Illness Date Patient Seen: 03/10/21 Time Patient Seen: 12:47 Chief complaint: Simple Open Prostatectomy Narrative: The patient is admitted on the morning of 04/07/2021 for scheduled simple open prostatectomy under general and Duramorph anesthesia. Perioperative and postoperative course was unremarkable in that he tolerated general diet the 1st postoperative evening and return of bowel function within the 1st 12 hours postoperatively. Morning the 1st postop days able to ambulate and transfer independently. On the morning of 03/10/2021 the patient was stable for discharge. Discharge Providers Provider Date of admission: 03/08/21 06:39 Discharge Date: 03/10/21 Primary care physician: Vu Oneal MD Discharge provider: Alexis Negrete MD Summary Hospital Course Discharge Diagnosis: 1. Urinary retention. Hospital Course: Patient was admitted in the morning of 04/07/2021 and underwent uncomplicated simple retropubic open prostatectomy under Duramorph spinal and general anesthesia. His perioperative and postoperative course was unremarkable in that he tolerated a general diet immediately evening postop and had return of bowel function within the 1st 24 hours postoperatively. On the morning of 1st postop day was able to ambulate independently and transfer independently. On the morning of 2nd postoperative day he was hemodynamically stable for discharge. Routine catheter care use instructions were provided postoperative activity hygiene driving and activity restrictions and limitations were explained at length and in detail. Pathology report is pending at discharge. Status at Discharge Cognitive/behavioral status at discharge: oriented Functional status at discharge: independent ambulation Overall status at discharge: patient is back to baseline Exam Vital Signs (past 8 hours): - 03/10/21 05:00 03/10/21 08:26 03/10/21 08:49 Temperature 98.1 F 97.8 F Pulse Rate 67 65 Respiratory Rate 18 16 Blood Pressure 124/68 119/71 119/71 Pulse Oximetry 96 96 03/10/21 12:09 Temperature 97.8 F Pulse Rate 56 L Respiratory Rate 16 Blood Pressure 112/62 Pulse Oximetry 97 Oxygen Delivery Method Room Air Oxygen Flow Rate 0 Narrative Exam Narrative: The patient is sitting upright in a bedside chair enjoying his lunch meal. He is in no distress. Chest-equal unlabored expansion bilaterally. Pulse-normal sinus rhythm. Abdomen-dressings and DARCY drain are intact with serosanguineous drainage. Extremities-no edema, cyanosis, or pallor. Objective Labs Result Diagrams: 11/29/21 07:15 03/08/21 07:15 [facility] Medical History (Updated 02/26/21 @ 07:17 by Mei Wilson RN) Acute urinary retention CKD (chronic kidney disease) Diabetes Enlarged prostate with urinary retention Hard of hearing History of UTI 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 Hypertension Obstructive uropathy Pyuria Urinary tract infection Surgical History (Updated 02/26/21 @ 09:08 by Mei Wilson RN) History of vasectomy Hx of blepharoplasty (2019) Social History household members: none Smoking Status: Former smoker alcohol intake: current Discharge Assessment & Plan Assessment and Plan Assessment: 1. Stable postop day 2. Status post simple open prostatectomy. 2. Pathology pending. Plan of Treatment: 1. Discharge home today. 2. Supervised voiding trial 03/22/2021 in the Urology Clinic. 3. Pathology pending. Will review with patient telephonically when final. Discharge Plan Discharge Plan Patient Disposition: Home Provider Discharge Comment: Contact Urology Clinic to schedule appointment 03/22/2021 Discharge orders & Medications Prescriptions: New oxycodone 5 mg Tablet 5 mg PO Q4H PRN (Reason: Pain, Moderate (4-6)) Qty: 30 0RF enoxaparin [Lovenox] 40 mg/0.4 mL Syringe 40 mg SUBCUT DAILY Qty: 30 0RF ciprofloxacin HCl 250 mg tablet 250 mg PO BID Qty: 6 0RF Rx Instructions: Begin in a.m. 03/21/2021. Continued ibuprofen 200 mg Tablet 200 mg PO Q6H PRN (Reason: Pain) 0RF melatonin 5 mg Capsule 10 mg PO BEDTIME PRN (Reason: Sleep) 0RF metformin 500 mg Tablet 500 mg PO BID 0RF losartan-hydrochlorothiazide 100-25 mg Tablet 1 tab PO DAILY 0RF atenolol 50 mg Tablet 50 mg PO DAILY 0RF aspirin 81 mg tablet,delayed release (DR/EC) 81 mg PO DAILY 0RF Follow up/Referrals: Vu Oneal MD [Primary Care Provider] - Diet/Activity/Treatments Diet: Diet as Tolerated Activity: No lifting greater than 15 lb or strenuous activity x6 weeks. No driving until 03/23/2021. Catheter: 2-way Bruno Skin/Wound/Dressing Care Report to your healthcare provider any signs of infection, such as:: chills, fever, night sweats, increased pain, unusual drainage and unusual redness Other wound treatment: May shower daily as needed. Leave incision open to air. Visit Report/Discharge Packet Instructions: DI for Prescription Opioid Use Stand Alone Forms: Surgery Discharge Discharge Data Primary Care Provider: Vu Oneal
--- NOTE | 2021-03-10 14:06 | PC.NURSE ---
Pt IV removed. Emptied eugene catheter bag (also demonstrated for Pt), instructed Pt in how to manage his catheter, keep it clean and sanitary, change from leg bag to large collection bag and back-provided needed items for doing so, how to give himself a Lovenox injection, encouraged Pt to continue to drink plenty of fluids to prevent constipation or dehydration, reviewed s/s of infection, removed dsg to leave incision open to air as ordered, removed suture holding drain in place and the drain. Reminded Pt not to drive for 6 weeks and not while taking narcotics and discussed follow up appointments. Pt denied further questions and was taken out via w/c to pov with friend and all belongings.
== END 2021-03-10 14:16 | disposition home or self-care (01) | DRG 707 ==
PROVIDERS: Admitting Provider Specialist; PCP Family Medicine; Referring Provider Specialist; Visit Provider Specialist
PROC: 0VT00ZZ Resection of Prostate, Open Approach (ICD-10-PCS; principal; 2021-03-08 07:45)
DX: N40.1 Benign prostatic hyperplasia with lower urinary tract symptoms (principal); N13.8 Other obstructive and reflux uropathy; N13.39 Other hydronephrosis; E11.22 Type 2 diabetes mellitus with diabetic chronic kidney disease; I12.9 Hypertensive chronic kidney disease with stage 1 through stage 4 chronic kidney disease, or unspecified chronic kidney disease; N18.9 Chronic kidney disease, unspecified; Z20.822 Contact with and (suspected) exposure to COVID-19; Z87.891 Personal history of nicotine dependence; Z79.84 Long term (current) use of oral hypoglycemic drugs
CPT/HCPCS: 36415; 55831; 80048; 82962; 84153; 85014; 85018; 86850; 86900; 86901; 87635; C9803; C9290; J0131; J0171; J0295; J1100; J1650; J2250; J2274; J2405; J2704; J3010

== ENCOUNTER 2021-03-12 08:13 | Emergency (ER) | payer MEDICARE, OTHER, SELFPAY ==
[2021-03-08 13:12] VITALS: BMI 30.9
[2021-03-12 08:36] VITALS: BP 119/64; PULSE 85; RESP 16; TEMP 36.6; O2SAT 97; BMI 31.4
--- NOTE | 2021-03-12 08:51 | ED_ITS ---
HPI - Male Genitourinary General Chief complaint: Urogenital-Male Stated complaint: Blood in cath post surgery on monday Time Seen by Provider: 03/12/21 08:44 History of Present Illness HPI Narrative: Patient is a 76-year-old male who is status post open prostatectomy for urinary retention day number 4, presenting today for concern for hematuria in his Rbuno catheter. He says it was clear and became darker. No gross blood in catheter. His pain is controlled he sometimes has irritation with Bruno. No fevers. He denies any abdominal pain. Related Data Home Medications Medication Instructions Recorded Confirmed aspirin 81 mg tablet,delayed 81 mg PO DAILY 11/20/20 03/08/21 release atenolol 50 mg tablet 50 mg PO DAILY 02/26/21 03/08/21 ibuprofen 200 mg tablet 200 mg PO Q6H PRN 02/26/21 03/08/21 losartan 100 1 tab PO DAILY 02/26/21 03/08/21 mg-hydrochlorothiazide 25 mg tablet melatonin 5 mg capsule 10 mg PO BEDTIME PRN 02/26/21 03/08/21 metformin 500 mg tablet 500 mg PO BID 02/26/21 03/08/21 Previous Rx's Medication Instructions Recorded ciprofloxacin HCl 250 mg tablet 250 mg PO BID #6 tab 03/10/21 oxycodone 5 mg tablet 5 mg PO Q4H PRN #30 tab 03/10/21 enoxaparin 40 mg/0.4 mL 40 mg (0.4 mL) SUBCUT DAILY #30 ml 03/11/21 subcutaneous syringe (Lovenox) Allergies Allergy/AdvReac Type Severity Reaction Status Date / Time No Known Drug Allergies Allergy Verified 03/08/21 07:08 Review of Systems Review of Systems Narrative: GENERAL: Denies chills,fever HEENT: Denies throat pain RESPIRATORY: Denies dyspnea, cough, wheezing CARDIOVASCULAR: Denies chest pain, palpitations GASTROINTESTINAL: Denies nausea, vomiting : Hematuria, see HPI MUSCULOSKELETAL: Denies extremity pain, injury SKIN: No rash, no laceration, no pruritus NEUROLOGIC: Denies weakness, dizziness, headache, numbness 8 point review of systems is negative except for those stated above and HPI Patient History Medical History Acute urinary retention CKD (chronic kidney disease) Diabetes Enlarged prostate with urinary retention Hard of hearing History of UTI 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 Hypertension Obstructive uropathy Pyuria Urinary tract infection Surgical History History of vasectomy Hx of blepharoplasty (2019) Social History household members: none Smoking Status: Former smoker alcohol intake: current Smoking Status: Former smoker alcohol intake frequency: a few times a week Substance Use Type: does not use Exam Initial Vital Signs Initial Vital Signs: Vital Signs Temperature 97.8 F 03/12/21 08:36 Pulse Rate 85 03/12/21 08:36 Respiratory Rate 16 03/12/21 08:36 Blood Pressure 119/64 03/12/21 08:36 Pulse Oximetry 97 03/12/21 08:36 GENERAL: Alert very hard of hearing 76-year-old male CARDIOVASCULAR: peripheral pulses in tact, cap refill <2 sec RESPIRATORY: No respiratory distress, speaks in full sentences without difficulty : Bruno catheter in place very light pink hematuria no gross blood. EXTREMITIES: Normal range of motion, no clubbing or edema. Neurovascularly i ntact NEUROLOGICAL: Cranial nerves II through XII grossly intact. Normal gait and speech. SKIN: Warm, dry, no petechiae, no rashes or lesions. Course Vital Signs Vital signs: Vital Signs - 8 hr 03/12/21 08:36 Temperature 97.8 F Pulse Rate 85 Respiratory Rate 16 Blood Pressure 119/64 Pulse Oximetry 97 MDM - Male Genitourinary MDM Narrative Medical decision making narrative: Patient is reassured. At this time there is no gross blood Bruno catheter is working. He is encouraged to continue drinking fluids. He is having difficulty getting his Lovenox injections secondary to a pharmacy issue however hopefully he can get them today. She has appointment and follow-up with urology in about a week and a half. Discharge Plan Departure Patient Disposition: Home Clinical Impression: Hematuria Instructions: DI for Hematuria Activity Restrictions/Additional Instructions: *You have been diagnosed with hematuria *What to do: At this time continue drinking fluids. Monitor output. Having light pink and still being able to see through the tube, is okay if it is becoming darker and bloody are need to return to emergency department *Continue to take medications as directed *Follow up with your primary care provider in 2-3 days *Return to ER if you should have increasing blood, fever, abdominal pain or any new, worsening or concerning symptoms Prescriptions: No Action enoxaparin [Lovenox] 40 mg/0.4 mL syringe 40 mg SUBCUT DAILY Qty: 30 0RF ibuprofen 200 mg Tablet 200 mg PO Q6H PRN (Reason: Pain) 0RF melatonin 5 mg Capsule 10 mg PO BEDTIME PRN (Reason: Sleep) 0RF metformin 500 mg Tablet 500 mg PO BID 0RF losartan-hydrochlorothiazide 100-25 mg Tablet 1 tab PO DAILY 0RF atenolol 50 mg Tablet 50 mg PO DAILY 0RF oxycodone 5 mg Tablet 5 mg PO Q4H PRN (Reason: Pain, Moderate (4-6)) Qty: 30 0RF ciprofloxacin HCl 250 mg tablet 250 mg PO BID Qty: 6 0RF Rx Instructions: Begin in a.m. 03/21/2021. aspirin 81 mg tablet,delayed release (DR/EC) 81 mg PO DAILY 0RF Referrals: Vu Oneal MD [Primary Care Provider] - Alexis Negrete MD [Physician] -
== END 2021-03-12 09:19 | disposition home or self-care (01) ==
PROVIDERS: Emergency Provider Emergency Medicine; PCP Family Medicine
DX: R31.9 Hematuria, unspecified (principal); Z98.890 Other specified postprocedural states
CPT/HCPCS: 99281

== ENCOUNTER → 2021-04-13 13:54 | Outpatient (CLI) | payer MEDICARE, OTHER, SELFPAY ==
[2021-03-08 13:12] VITALS: BMI 30.9
[2021-04-13 15:51] LABS: Prostate Specific Antigen 0.167 ng/mL (0.10-4.00)
== END ==
PROVIDERS: PCP Family Medicine; Referring Provider Specialist; Visit Provider Specialist
DX: N40.1 Benign prostatic hyperplasia with lower urinary tract symptoms (principal); R33.8 Other retention of urine
CPT/HCPCS: 36415; 84153

== ENCOUNTER → 2021-04-20 07:52 | Outpatient (CLI) | payer MEDICARE, OTHER, SELFPAY ==
[2021-03-08 13:12] VITALS: BMI 30.9
== END ==
PROVIDERS: PCP Family Medicine; Visit Provider Specialist
DX: Z09 Encounter for follow-up examination after completed treatment for conditions other than malignant neoplasm (principal); R30.0 Dysuria; R33.8 Other retention of urine
CPT/HCPCS: 81002; 87077; 87086

== ENCOUNTER → 2021-07-20 10:33 | Outpatient (CLI) | payer MEDICARE, OTHER, SELFPAY ==
[2021-04-20 08:07] VITALS: BMI 30.9
[2021-07-20 12:37] LABS: Prostate Specific Antigen 0.211 ng/mL (0.10-4.00)
== END ==
PROVIDERS: PCP Family Medicine; Referring Provider Specialist; Visit Provider Specialist
DX: N40.1 Benign prostatic hyperplasia with lower urinary tract symptoms (principal); R33.8 Other retention of urine
CPT/HCPCS: 36415; 84153

== ENCOUNTER → 2021-07-21 09:55 | Outpatient (CLI) | payer MEDICARE, OTHER, SELFPAY ==
[2021-04-20 08:07] VITALS: BMI 30.9
== END ==
PROVIDERS: PCP Family Medicine; Visit Provider Specialist
DX: R30.0 Dysuria (principal); T83.511A Infection and inflammatory reaction due to indwelling urethral catheter, initial encounter; N39.0 Urinary tract infection, site not specified; R33.9 Retention of urine, unspecified
CPT/HCPCS: 51798; 81002; 87086; 99214

== ENCOUNTER → 2022-01-27 14:51 | Outpatient (CLI) | payer MEDICARE, OTHER, SELFPAY ==
[2021-07-28 11:25] VITALS: BMI 30.9
[2022-01-27 17:03] LABS: Prostate Specific Antigen 0.362 ng/mL (0.10-4.00)
== END ==
PROVIDERS: PCP Family Medicine; Referring Provider Specialist; Visit Provider Specialist
DX: N40.1 Benign prostatic hyperplasia with lower urinary tract symptoms (principal); R33.8 Other retention of urine
CPT/HCPCS: 36415; 84153

== ENCOUNTER → 2022-02-08 14:47 | Outpatient (CLI) | payer MEDICARE, OTHER, SELFPAY ==
[2021-07-28 11:25] VITALS: BMI 30.9
[2022-02-08 16:18] LABS: Bilirubin Urine UA NEGATIVE (NEGATIVE); Color Urine UA YELLOW; Glucose Urine UA NEGATIVE (Negative); Ketones Urine UA NEGATIVE (NEGATIVE); Leukocyte Esterase Urine UA 2+ (NEGATIVE); Nitrite Urine UA NEGATIVE (Negative); Occult Blood Urine UA 3+ (Negative); Protein Urine UA 2+ (Negative); Specific Gravity Urine UA 1.025 (1.000-1.035); Urobilinogen Urine UA 0.2 E.U./dL (0.2); pH Urine UA 5.5 (4.5-8.0)
[2022-02-08 16:20] LABS: Appearance Urine UA Slightly Cloudy
[2022-02-08 16:39] LABS: Bacteria Urine None Seen; Culture Indicated Urine Specimen Cultured; RBC Urine 10-30/HPF (0-5/HPF); Squamous Epithelial Cell Urine 1-5 /HPF (0-5/HPF); WBC Urine >100/HPF (0-5/HPF)
== END ==
PROVIDERS: PCP Family Medicine; Visit Provider Specialist
DX: N39.0 Urinary tract infection, site not specified (principal); R31.9 Hematuria, unspecified; R33.9 Retention of urine, unspecified; Z87.440 Personal history of urinary (tract) infections
CPT/HCPCS: 51798; 81001; 81002; 87077; 87086; 99214

== ENCOUNTER 2023-04-18 15:29 | Emergency (ER) | payer MEDICARE, OTHER, SELFPAY ==
[2021-07-28 11:25] VITALS: BMI 30.9
[2023-04-18] VITALS (12 sets, daily range): BP systolic 94–142; BP diastolic 59–79; PULSE 60–77; RESP 13–21; TEMP 36.6; O2SAT 93–100; BMI 27.8
--- NOTE | 2023-04-18 16:02 | DI.RAD.S_ITS ---
PROCEDURE: XR CHEST 1V INDICATIONS: chest pain TECHNIQUE: One view of the chest was acquired. COMPARISON: None. FINDINGS: Surgical changes and devices: None. Lungs and pleura: Lungs are clear. No pleural effusions or pneumothorax. Mediastinum: Mediastinal contours appear normal. Heart size is normal. Bones and chest wall: No suspicious bony lesions. Overlying soft tissues appear unremarkable. IMPRESSION: No acute pulmonary process. Dictated by: Inez Sabillon M.D. on 04/18/2023 at 16:24 Approved by: Inez Sabillon M.D. on 04/18/2023 at 16:24
[2023-04-18 16:21] LABS: INR 1.2 (0.9-1.3); Prothrombin Time 13.4 SECONDS (9.4-12.5)
[2023-04-18 16:24] LABS: PTT Partial Thromboplastin Tim 29 SECONDS (25.1-36.5)
[2023-04-18 16:25] LABS: Add Manual Diff / Slide Review NO; Alanine Aminotransferase 17 IU/L (<50); Albumin 4.3 g/dL (3.5-5.0); Albumin Globulin Ratio 1.1 (1.0-2.8); Alkaline Phosphatase 52 U/L (38-126); Aspartate Aminotransferase 23 IU/L (17-59); BUN Creatinine Ratio 32.2 (6-22); Basophils Absolute Auto 0 /uL (0-100); Basophils Percent Auto 0.1 % (0-2); Bilirubin Total 0.7 mg/dL (0.2-1.3); Blood Urea Nitrogen 95 mg/dL (9-20); Calcium 9.3 mg/dL (8.4-10.2); Carbon Dioxide 19 mmol/L (22-32); Chloride 98 mmol/L (98-107); Creatine Kinase 58 U/L (55-170); Eosinophils Absolute Auto 0 /uL (0-450); Eosinophils Percent Auto 0.3 % (2-4); Estimated Glomerular Filt Rate 21 mL/min (>60); Glucose 137 mg/dL (80-110); Lipase 146 U/L (23-300); Lymphocytes Absolute Auto 900 /uL (1100-4500); Lymphocytes Percent Auto 6.5 % (25-40); Magnesium 2.9 mg/dL (1.6-2.3); Mean Corpuscular HGB Conc 34.9 % (30-36); Mean Corpuscular Hemoglobin 32.2 PG (26-34); Mean Corpuscular Volume 92.3 fL (80-100); Monocytes Absolute Auto 1800 /uL (0-900); Monocytes Percent Auto 13.2 % (3-14); Neutrophils Absolute Auto 11000 /uL (1500-7000); Neutrophils Percent Auto 79.9 % (50-75); Platelet Count 290 X10^3/uL (150-400); Potassium 5.1 mmol/L (3.4-5.1); Red Blood Cell Count 4.34 X10^6/uL (4.5-5.9); Red Cell Distribution Width 12.8 % (11.6-14.8); Sodium 129 mmol/L (137-145); Total Protein 8.3 g/dL (6.3-8.2); White Blood Cell Count 13.8 X10^3/uL (4.5-11.0)
[2023-04-18 16:35] LABS: HEMOLYSIS 56 (0-50)
[2023-04-18 16:37] LABS: Troponin I 0.013 ng/mL (0.01-0.034)
--- NOTE | 2023-04-18 19:17 | ED_ITS ---
HPI - General Adult General Chief complaint: Urogenital-Male Stated complaint: sent by urology, abnormal labs Time Seen by Provider: 04/18/23 18:09 Source: patient Mode of arrival: Ambulatory History of Present Illness HPI narrative: Patient is a 78-year-old male. Several years ago underwent a prostatectomy. Has had a urinary catheter in the past. He states that for the past 2-1/2 weeks has an burning sensations with urination, loss of appetite, urinary frequency. He has had urinary issues since his prostatectomy a year ago. Has been on antibiotics in the past for these symptoms. He went to an outside walk-in clinic earlier today. Was evaluated. Had labs drawn. Was started on Cipro for a urinary tract infection. Received a call from the clinic after he was discharged telling him that he had abnormal lab results then he should come to the emergency department. I was able to obtain labs from his visit earlier today. Review of the show sodium of 129, potassium of 4.9, creatinine of 2.9, GFR 21, glucose of 156. Related Data Home Medications Medication Instructions Recorded Confirmed aspirin 81 mg tablet,delayed 81 mg PO DAILY 11/20/20 07/27/21 release atenolol 50 mg tablet 50 mg PO DAILY 02/26/21 07/27/21 losartan 100 1 tab PO DAILY 02/26/21 07/27/21 mg-hydrochlorothiazide 25 mg tablet metformin 500 mg tablet 500 mg PO BID 02/26/21 07/27/21 ibuprofen 200 mg tablet 400 mg PO Q6H PRN Pain 07/21/21 07/27/21 Previous Rx's Medication Instructions Recorded tamsulosin 0.4 mg capsule 0.4 mg PO BEDTIME #90 caps 04/26/21 fluconazole 100 mg tablet 100 mg PO BID #14 tabs 02/14/22 (Diflucan) Allergies Allergy/AdvReac Type Severity Reaction Status Date / Time No Known Drug Allergies Allergy Verified 07/27/21 14:40 Review of Systems Constitutional Constitutional: Reports system reviewed and no additional complaints, except as documented Cardiovascular Cardiovascular: Reports system reviewed and no additional complaints, except as documented Respiratory Respiratory: Reports system reviewed and no additional complaints, except as documented Gastrointestinal Gastrointestinal: Reports system reviewed and no additional complaints, except as documented Genitourinary Genitourinary: Reports system reviewed and no additional complaints, except as documented Musculoskeletal Musculoskeletal: Reports system reviewed and no additional complaints, except as documented Integumentary/Breasts Skin/Breast: Reports system reviewed and no additional complaints, except as documented Neurologic Neurologic: Reports system reviewed and no additional complaints, except as documented Hematologic/Lymphatic On Anticoagulants: No Patient History Medical History UTI (urinary tract infection) Urinary retention Hard of hearing History of UTI CKD (chronic kidney disease) Enlarged prostate with urinary retention Urinary tract infection Pyuria Acute urinary retention 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 Obstructive uropathy Diabetes Hypertension Surgical History Hx of blepharoplasty (2019) History of vasectomy Social History household members: none Smoking Status: Former smoker alcohol intake: current Smoking Status: Former smoker alcohol intake frequency: a few times a week Substance Use Type: does not use Exam Initial Vital Signs Initial Vital Signs: Vital Signs Temperature 98 F 04/18/23 15:34 Pulse Rate 77 04/18/23 15:34 Respiratory Rate 18 04/18/23 15:34 Blood Pressure 94/62 04/18/23 15:34 Pulse Oximetry 100 04/18/23 15:34 Oxygen Delivery Method Room Air 04/18/23 15:34 Const General: cooperative and comfortable HENMT Head: normal to inspection and normocephalic Resp Effort & Inspection: normal respiratory effort Cardio Rate: regular rate GI Inspection: normal to inspection and non-distended Palpation: soft and No tender Skin General: no rashes or lesions noted Extrem General: normal to inspection and capillary refill normal Course Orders Ordered: ED Orders 04/18/23 16:00 Complete Blood Count AUTO DIFF Stat Comprehensive Metabolic Panel Stat Lipase Stat Magnesium Stat PTT Partial Thromboplastin [place] Stat Prothrombin Time INR Stat Troponin & CK Cardiac Panel Stat 04/18/23 16:02 XR chest 1V Stat 04/18/23 16:31 EKG-12 Lead Stat Discontinued Medications Sodium Chloride (Normal Saline 0.9%) 1,000 mls @ 1,000 mls/hr IV BOLUS ONE Stop: 04/18/23 20:15 Last Infusion: 04/18/23 20:44 Dose: Infused Documented By: Admin: 04/18/23 19:36 Dose: 1,000 mls/hr Documented By: CAROLINA Lidocaine HCl (Lidocaine 2% (Glydo) 6 Ml Gel) 6 ml TOP NOW ONE Stop: 04/18/23 20:42 Last Admin: 04/18/23 20:45 Dose: 6 ml Documented By: CAROLINA Vital Signs Vital signs: Vital Signs - 8 hr 04/18/23 18:38 04/18/23 18:39 04/18/23 18:39 Pulse Rate 63 64 Respiratory Rate 17 21 Blood Pressure 124/67 Pulse Oximetry 99 96 Oxygen Delivery Method 04/18/23 19:00 04/18/23 19:00 04/18/23 19:30 Pulse Rate 60 Respiratory Rate 13 Blood Pressure 107/62 101/63 Pulse Oximetry 98 Oxygen Delivery Method 04/18/23 19:30 04/18/23 20:03 04/18/23 20:04 Pulse Rate 62 70 72 Respiratory Rate 14 Blood Pressure Pulse Oximetry 98 99 97 Oxygen Delivery Method 04/18/23 20:04 04/18/23 20:30 04/18/23 20:30 Pulse Rate 62 Respiratory Rate 18 Blood Pressure 142/79 H 131/65 Pulse Oximetry 93 Oxygen Delivery Method Room Air 04/18/23 21:00 04/18/23 21:00 04/18/23 21:30 Pulse Rate 67 71 Respiratory Rate Blood Pressure 132/69 Pulse Oximetry 99 98 Oxygen Delivery Method Room Air 04/18/23 21:31 04/18/23 21:31 Pulse Rate 76 Respiratory Rate 18 Blood Pressure 125/77 Pulse Oximetry 99 Oxygen Delivery Method Medical Decision Making Medical Records Medical records reviewed: Yes I reviewed the patient's medical records. Lab Data Lab results reviewed: Yes I reviewed the patient's lab results. 04/18/23 16:00 04/18/23 16:00 Labs: Lab Results 04/18/23 Range/Units 16:00 WBC 13.8 H (4.5-11.0) X10^3/uL RBC 4.34 L (4.5-5.9) X10^6/uL Hgb 14.0 (13.5-17.5) g/dL Hct 40.0 L (41-53) % MCV 92.3 (80-100) fL MCH 32.2 (26-34) PG MCHC 34.9 (30-36) % RDW 12.8 (11.6-14.8) % Plt Count 290 (150-400) X10^3/uL Neut % (Auto) 79.9 H (50-75) % Lymph % (Auto) 6.5 L (25-40) % [place] % (Auto) 13.2 (3-14) % Eos % (Auto) 0.3 L (2-4) % Baso % (Auto) 0.1 (0-2) % Neut # (Auto) 00091 H (9605-1284) /uL Lymph # (Auto) 900 L (4805-2901) /uL [place] # (Auto) 1800 H (0-900) /uL Eos # (Auto) 0 (0-450) /uL Baso # (Auto) 0 (0-100) /uL PT 13.4 H (9.4-12.5) SECONDS INR 1.2 (0.9-1.3) APTT 29 (25.1-36.5) SECONDS Sodium 129 L (137-145) mmol/L Potassium 5.1 (3.4-5.1) mmol/L Chloride 98 (98-107) mmol/L Carbon Dioxide 19 L (22-32) mmol/L BUN 95 H (9-20) mg/dL Creatinine 2.95 H (0.66-1.25) mg/dL Estimated GFR 21 L (>60) mL/min BUN/Creatinine Ratio 32.2 H (6-22) Glucose 137 H (80-110) mg/dL Calcium 9.3 (8.4-10.2) mg/dL Magnesium 2.9 H (1.6-2.3) mg/dL Total Bilirubin 0.7 (0.2-1.3) mg/dL AST 23 (17-59) IU/L ALT 17 (<50) IU/L Alkaline Phosphatase 52 (38-126) U/L Total Creatine Kinase 58 (55-170) U/L Troponin I 0.013 (0.01-0.034) ng/mL Total Protein 8.3 H (6.3-8.2) g/dL Albumin 4.3 (3.5-5.0) g/dL Globulin 4.0 (1.7-4.1) g/dL Albumin/Globulin Ratio 1.1 (1.0-2.8) Lipase 146 (23-300) U/L [facility] Narrative Medical decision making narrative: Patient has started antibiotics and based on the urine sample from the walk-in clinic earlier today in the symptoms that he is having this is most likely appropriate. He does have an elevation in his creatinine although he has had similar creatinine in the past although his last 1 in our system was much better than what it was today. He is having urinary frequency. Initial bladder scan showed approximately 370 cc of urine postvoid. He was able to urinate another 100 cc. When we checked again it now reads approximately 700. I suspect that the initial bladder scan was unremarkable. A Brnuo catheter was placed with return of almost 1 L of urine. I advised that we leave the catheter in place. Advised that he contact the urologist tomorrow for follow-up. Advised that he continue with the oral antibiotics. He was given return precautions. He expressed understanding and agreement. I do suspect that his creatinine will improve now that the obstructive process has been resolved. Discharge Plan Departure Patient Disposition: Home Clinical Impression: Acute urinary retention, UTI (urinary tract infection) Instructions: How to Care for Your Bruno Catheter -- Male, DI for Urinary Retention in Men Activity Restrictions/Additional Instructions: I recommend that you continue to take the antibiotic that you were prescribed earlier today. Tomorrow contact the urologist office of the number provided below for follow-up. Return to the emergency department for new symptoms. Prescriptions: No Action tamsulosin 0.4 mg capsule 0.4 mg PO BEDTIME Qty: 90 3RF fluconazole [Diflucan] 100 mg tablet 100 mg PO BID Qty: 14 0RF metformin 500 mg Tablet 500 mg PO BID losartan-hydrochlorothiazide 100-25 mg Tablet 1 tab PO DAILY atenolol 50 mg Tablet 50 mg PO DAILY ibuprofen 200 mg tablet 400 mg PO Q6H PRN (Reason: Pain) aspirin 81 mg tablet,delayed release (DR/EC) 81 mg PO DAILY Referrals: Vu Oenal MD [Primary Care Provider] - Alexis Negrete MD [Physician] - Stand Alone Forms: Patient Portal/API
[2023-04-18] MEDS: SODIUM CHLORIDE 0.9% 1,000 ML 1000 ML IV (19:36)
--- NOTE | 2023-04-18 20:10 | PC.NURSE ---
patient was able to urinate 140ml. Post void residual was 392ml. Patient peed again-100ml. Post residual void was 744ml. Dr. Carol bro.
[2023-04-18] MEDS: LIDOCAINE 2% (GLYDO) 6 ML GEL TOP (20:45)
== END 2023-04-18 21:55 | disposition home or self-care (01) ==
PROVIDERS: Emergency Medicine; Emergency Provider Emergency Medicine; PCP Family Medicine; Referring Provider Radiology Diagnostic Radiology
DX: N39.0 Urinary tract infection, site not specified (principal); R33.8 Other retention of urine; R07.9 Chest pain, unspecified; R79.89 Other specified abnormal findings of blood chemistry
CPT/HCPCS: 36415; 51798; 71045; 80053; 82550; 83690; 83735; 84484; 85025; 85610; 85730; 93005; 93010; 96360; 99284